=== PATIENT | female | born 1990 | race Two or more races ===

== ENCOUNTER 2025-01-07 09:56 | Emergency (ER) | payer OTHER, SELFPAY ==
[2025-01-07 10:12] VITALS: BP 136/84; PULSE 70; RESP 18; TEMP 36.9; O2SAT 99; BMI 44.2
--- NOTE | 2025-01-07 10:18 | PD.EDDENTL ---
ED Dental RME/HPI General Chief complaint: Ear Stated complaint: RIGHT EARACHE X AM RADIATING DOWN NECK Time Seen by Provider: 01/07/25 10:02 Arrival date/time: 01/07/25 09:56 34-year-old female with history of dental caries and fractured tooth presents to the emergency department today complains of right-sided dental pain, right-sided jaw pain and right ear pain Limitations: no limitations Related Data Previous Rx's ?Medication ?Instructions ?Recorded ibuprofen 800 mg tablet (IBU) 800 mg PO Q8H #20 tabs 03/06/24 clindamycin HCl 300 mg capsule 300 mg PO TID 7 days #21 caps 01/07/25 hydrocodone 5 mg-acetaminophen 325 1 tab PO BID PRN pain #6 tabs 01/07/25 mg tablet ibuprofen 800 mg tablet 800 mg PO TID PRN pain #30 tabs 01/07/25 Allergies Allergy/AdvReac Type Severity Reaction Status Date / Time diphenhydramine (From Allergy Verified 01/07/25 10:00 Benadryl) Review of Systems Review of Systems Systems Reviewed: All systems reviewed, normal except as documented Constitutional Constitutional: Reports system reviewed and no additional complaints, except as documented, Denies fever(s) and Denies headache(s) Eyes Eyes: Reports system reviewed and no additional complaints, except as documented and Denies blurry vision ENT Ears, Nose, Mouth, and Throat: Reports system reviewed and no additional complaints, except as documented, Reports dental pain, Denies headache(s), Denies nasal congestion and Denies nasal discharge Cardiovascular Cardiovascular: Reports system reviewed and no additional complaints, except as documented, Denies chest pain and Denies dyspnea Respiratory Respiratory: Reports system reviewed and no additional complaints, except as documented, Denies chest congestion, Denies cough and Denies dyspnea Gastrointestinal Gastrointestinal: Reports system reviewed and no additional complaints, except as documented and Denies abdominal pain Integumentary/Breasts Skin/Breast: Reports system reviewed and no additional complaints, except as documented and Denies rash Neurologic Neurologic: Reports system reviewed and no additional complaints, except as documented, Reports as per HPI and Denies headache(s) Past Medical History Social History SMOKING STATUS: Never smoker ED Exam General Limitations: Present no limitations General appearance: Present alert and in no apparent distress Head Head exam: Present atraumatic, normocephalic and normal inspection Eye Eye exam: Present normal appearance, PERRL and EOMI; Absent conjunctival injection ENT ENT exam: Present mucous membranes moist Expanded ENT Exam Mouth exam: Absent drooling or trismus Teeth exam: Present dental caries, fractured tooth #, dental tenderness # and gingival swelling Neck Neck exam: Present normal inspection, full ROM and trachea midline Chest Chest inspection: Present normal inspection and symmetric chest wall rise Respiratory Respiratory exam: Present normal lung sounds bilaterally Cardiovascular Cardiovascular exam: Present regular rate, normal rhythm and normal heart sounds Abdominal Exam Abdominal exam: Present soft and normal bowel sounds Extremities Exam Extremities exam: Present normal inspection and full ROM Back Exam Back exam: Present normal inspection and full ROM Neurological Exam Neurological exam: Present alert, oriented X3 and CN II-XII intact Psychiatric Psychiatric exam: Present normal affect and normal mood Skin Skin exam: Present warm, dry, intact and normal color Course Quality Measures none Vital Signs Vital signs: Vital Signs Temperature 98.5 F 01/07/25 10:12 Pulse Rate 70 01/07/25 10:12 Respiratory Rate 18 01/07/25 10:12 Blood Pressure 136/84 H 01/07/25 10:12 Pulse Oximetry (%) 99 01/07/25 10:12 Oxygen Delivery Method Room Air 01/07/25 10:12 O2 saturation 99% r/a wnl Dental / Oral MDM Narrative MDM Narrative:: 34-year-old female with history of dental caries and fractured tooth presents to the emergency department today complains of right-sided dental pain, right-sided jaw pain and right ear pain On exam patient has fractured tooth right molar as well as mild right-sided facial swelling Patient will be treated course of antibiotics and pain medication patient started to follow-up with dentist soon as possible for emergent concerns directed return immediately Patient data External records reviewed:: [facility] previous records Clinical information provided by:: patient Social determinants that could affect healthcare access:: none Patient has the following chronic illnesses:: None How is presenting disease/condition affected by chronic disease/condition?: no chronic disease Evaluation data The following diagnostics were reviewed and interpreted by me:: other (specify) (N/A) Lab and/or radiology exams considered but not ordered:: Consider not ordered Interpretation Summary: N/A Medications / Prescriptions Medications or Prescriptions considered but not ordered:: Given Medication administrations:: Given Consultations Consultation(s) initiated? (list below): No Diagnosis Dental Differential Diagnosis: gingival abscess, dental caries, toothache, dental abscess and fracture of tooth Most likely diagnosis given after review of the tests above:: Dental pain Admission Indicated Admission indicated?: not indicated Admission Request Was there a request for admission?: No Disposition Plan Disposition Plan: Discharge Discharge Attestation Discharge Attestation: The patient and all family members were given an opportunity to ask questions and understood the discharge instructions. Discharge instructions specifically effects, indications for sooner follow up or return to the emergency department, and the expected course of current diagnosis. Patient condition: Stable Discharge Plan Plan Patient Disposition: HOME (Self Care) Disposition Comment: stable Prescriptions/Referrals Prescriptions/Med Rec: New clindamycin HCl 300 mg capsule 300 mg PO TID 7 Days Qty: 21 0RF ibuprofen 800 mg tablet 800 mg PO TID PRN (Reason: pain) Qty: 30 0RF hydrocodone-acetaminophen 5-325 mg tablet 1 tab PO BID MDD 10 PRN (Reason: pain) Qty: 6 0RF No Action ibuprofen [IBU] 800 mg tablet 800 mg PO Q8H Qty: 20 0RF Referrals: Mahi Maxwell, SOFTWARE ENGINEER ADVISOR [Primary Care Provider] - In 1 week Problem List Clinical Impression: Fracture of tooth, Abscess, dental Patient/Caregiver Discharge Instructions Education Materials: Dental Abscess Additional Instructions: Please follow up with your primary care doctor in the next 24-48hrs for any worsening symptoms return here immediately Print Language: Mongolian Stand Alone Forms: Comfort Award Info., Patient Portal Info Letter PA/GOVERNMENT AFFAIRS RESEARCHER Supervising Physician PA/GOVERNMENT AFFAIRS RESEARCHER Supervising Physician: dr aldana
== END 2025-01-07 12:19 | disposition home or self-care (01) ==
PROVIDERS: Emergency Provider Family Medicine; PCP Registered Nurse
DX: S02.5XXA Fracture of tooth (traumatic), initial encounter for closed fracture (principal); K04.7 Periapical abscess without sinus; X58.XXXA Exposure to other specified factors, initial encounter
CPT/HCPCS: 99281

== ENCOUNTER 2025-07-11 00:52 | Emergency (ER) | payer SELFPAY ==
[2025-07-11 00:55] VITALS: BMI 48.0
[2025-07-11 01:06] VITALS: BP 132/84; PULSE 80; RESP 18; TEMP 36.8; O2SAT 98
--- NOTE | 2025-07-11 01:12 | XR_ITS ---
Examination: CT abdomen and pelvis without contrast. Coronal 3-D reconstructions. Sagittal 2-D reconstructions. Date and time of exam:July 11, 2025, 0220 hrs. Indications: Right-sided flank pain beginning 2 days ago CTDI: vol (mGy): 14.11 DLP: (mGycm): 890 Technique: Axial images of the abdomen have been obtained, 3 mm slice thickness Intravenous contrast material has not been administered. Low dose protocols were performed. One or more of the following dose reduction techniques were used; automated exposure control, adjustment of the mA and/or KV according to patient size, use of iterative reconstruction technique. Findings: No focal liver or splenic lesions Contracted gallbladder No pancreatic or adrenal mass Moderate renal scar formation, but no renal or ureteral calculi, no hydronephrosis Aorta normal size Normal appendix No bowel obstruction No pelvic mass No bladder mass or bladder calculi The osseous structures are intact Impression: No renal or ureteral calculi, no hydronephrosis Normal appendix
--- NOTE | 2025-07-11 01:18 | PD.EDABDPN ---
ED Abdominal Pain RME/HPI General Chief Complaint: Abdominal Pain Stated complaint: RIGHT FLANK PAIN Time seen by provider: 07/11/25 01:02 Arrival date/time: 07/11/25 00:52 Source: patient RME / HPI RME / HPI narrative: Ms. Browning is a 35-year-old female with past medical history of asthma and morbid obesity who presented to [facility] emergency department with a chief complaint of abdominal pain. Patient complains of right-sided abdominal pain which started about 2 weeks ago reports started as a dull ache radiating to her right flank, she also complains of diarrhea since the last 2 weeks reports multiple episodes of stools. She denies any nausea vomiting chest pain shortness of breath and palpitations. Related Data Previous Rx's ?Medication ?Instructions ?Recorded ibuprofen 800 mg tablet (IBU) 800 mg PO Q8H #20 tabs 03/06/24 hydrocodone 5 mg-acetaminophen 325 1 tab PO BID PRN pain #6 tabs 01/07/25 mg tablet ibuprofen 800 mg tablet 800 mg PO TID PRN pain #30 tabs 01/07/25 Allergies Allergy/AdvReac Type Severity Reaction Status Date / Time diphenhydramine (From Allergy Verified 07/11/25 00:53 Benadryl) Review of Systems Review of Systems Systems Reviewed: All systems reviewed, normal except as documented Past Medical History Past Medical History RESPIRATORY: Positive Asthma Social History SMOKING STATUS: Never smoker ED Exam Narrative Physical exam: Physical Exam General: Awake and in no acute distress. Conversational and non-toxic appearing. HEENT: Normocephalic, atraumatic, mucous membranes moist. Heart: Regular rate and rhythm, no murmurs. Lungs: Clear to auscultation with no wheezing or crackles. Abdomen: Soft, obese, nondistended, tenderness right abdomen, positive bowel sounds. ?No guarding or rebound tenderness. Neurologic: Alert and oriented x3, no gross neurological deficit, and patient able to move all 4 extremities. Extremities: 1+ BLE Edema Skin: No rash or ecchymoses. Course Quality Measures none Orders Category Date Time Status EKG (ED ONLY) *Do not use* NOW Care 07/11/25 01:[address] abdomen pelvis wo con Stat Exams 07/11/25 01:12 Taken EKG (ED Only) Stat Exams 07/11/25 01:10 Ordered Amylase Stat Lab 07/11/25 01:25 Completed Bilirubin,Direct Stat Lab 07/11/25 01:25 Completed CBC Stat Lab 07/11/25 01:25 Completed CMP [Comprehensive Metabolic Panel] Stat Lab 07/11/25 01:25 Completed Free T4 (Free Thyroxine) Stat Lab 07/11/25 01:25 Completed HCG,Qualitative Serum Stat Lab 07/11/25 01:25 Completed INR [Prothrombin Time with INR] Stat Lab 07/11/25 01:25 Completed Lactate (Lactic Acid) Stat Lab 07/11/25 01:25 Completed Magnesium Stat Lab 07/11/25 01:25 Completed PTT [Partial Thromboplastin Time] Stat Lab 07/11/25 01:25 Completed Procalcitonin Stat Lab 07/11/25 01:25 Completed Thyroid Stimulating Hormone Stat Lab 07/11/25 01:25 Completed Troponin I Stat Lab 07/11/25 01:25 Completed Urinalysis, C/S if Indicated Stat Lab 07/11/25 03:40 Completed Acetaminophen Tab [Tylenol ES Tab] Med 07/11/25 01:15 Discontinued 500 mg PO X1 ONE Vital Signs Vital signs: Vital Signs Temperature 98.3 F 07/11/25 01:06 Pulse Rate 80 07/11/25 01:06 Respiratory Rate 18 07/11/25 01:06 Blood Pressure 132/84 H 07/11/25 01:06 Pulse Oximetry (%) 98 07/11/25 01:06 Oxygen Delivery Method Room Air 07/11/25 01:06 Abdominal Pain MDM MDM Narrative MDM Narrative:: #Abdominal pain #Diarrhea 35-year-old female with past medical history of asthma seen in ER today for abdominal pain. Complains of dull ache on the right side with radiation to the right flank. Complains of diarrhea for 2 weeks as well Workup: CBC: WBC 9.5 hemoglobin 13.2 platelet 348 Coags INR 1.0 PT APTT normal Chemistry: Sodium 142 potassium 3.6 chloride 108 bicarb 27.5 anion gap 7 BUN 8 creatinine 0.7 GFR greater than 60, lactate 1.2 osmolality 282 corrected calcium 9.4 magnesium 1.8 T. bili 0.3 direct bilirubin less than 0.1 AST 24 ALT 22 alk phos 136 troponin negative total protein 6.8 albumin 4.3 globulin 2.5 amylase 35 Pro-Kev less than 0.04 TSH 3.27 free T41.16 hCG negative Urine analysis: pH 5.5 specific gravity 1.036, trace protein trace ketones negative blood nitrite bilirubin positive leukocyte esterase 5 RBC 4 WBC 4+ calcium oxalate crystals rare bacteria CT abdomen pelvis: No evidence of acute intra-abdominal or pelvic pathology EKG Sinus Rhythm Findings discussed with patient, patient to be discharged follow-up with primary care physician. Recommend GI referral and further workup as indicated Case discussed with Attending Physician Dr. Loulou Delgado MD Internal Medicine PGY-2 Disclaimer: This note was dictated by speech recognition. Minor errors in soil conservation teacher may be present due to voice recognition software. Patient data External records reviewed:: [facility] previous records Clinical information provided by:: patient Social determinants that could affect healthcare access:: none Patient has the following chronic illnesses:: Asthma How is presenting disease/condition affected by chronic disease/condition?: uneffected by Evaluation data The following diagnostics were reviewed and interpreted by me:: lab results, radiology exam(s) and EKG tracing(s) Lab and/or radiology exams considered but not ordered:: None Interpretation Summary: CBC: WBC 9.5 hemoglobin 13.2 platelet 348 Coags INR 1.0 PT APTT normal Chemistry: Sodium 142 potassium 3.6 chloride 108 bicarb 27.5 anion gap 7 BUN 8 creatinine 0.7 GFR greater than 60, lactate 1.2 osmolality 282 corrected calcium 9.4 magnesium 1.8 T. bili 0.3 direct bilirubin less than 0.1 AST 24 ALT 22 alk phos 136 troponin negative total protein 6.8 albumin 4.3 globulin 2.5 amylase 35 Pro-Kev less than 0.04 TSH 3.27 free T41.16 hCG negative Urine analysis: pH 5.5 specific gravity 1.036, trace protein trace ketones negative blood nitrite bilirubin positive leukocyte esterase 5 RBC 4 WBC 4+ calcium oxalate crystals rare bacteria CT abdomen pelvis: No evidence of acute intra-abdominal or pelvic pathology EKG Sinus Rhythm Medications / Prescriptions Medications or Prescriptions considered but not ordered:: None Medication administrations:: Medication Administration History Discontinued Medications Acetaminophen (Acetaminophen 500 Mg Tablet) 500 mg PO X1 ONE Stop: 07/11/25 01:16 Last Admin: 07/11/25 01:26 Dose: 500 mg Documented By: CVL As Above Consultations Consultation(s) initiated? (list below): No Diagnosis Differential diagnosis abdominal pain: abdominal pain, calculus of kidney and small bowel obstruction Most likely diagnosis given after review of the tests above:: Abdominal Pain Admission Indicated Admission indicated?: not indicated Admission Request Was there a request for admission?: No Disposition Plan Disposition Plan: Discharge Discharge Attestation Discharge Attestation: The patient and all family members were given an opportunity to ask questions and understood the discharge instructions. Discharge instructions specifically effects, indications for sooner follow up or return to the emergency department, and the expected course of current diagnosis. Patient condition: Stable Discharge Plan Plan Patient Disposition: HOME (Self Care) Patient condition on transfer: Stable Prescriptions/Referrals Prescriptions/Med Rec: No Action ibuprofen [IBU] 800 mg tablet 800 mg PO Q8H Qty: 20 0RF ibuprofen 800 mg tablet 800 mg PO TID PRN (Reason: pain) Qty: 30 0RF hydrocodone-acetaminophen 5-325 mg tablet 1 tab PO BID MDD 10 PRN (Reason: pain) Qty: 6 0RF Referrals: Mahi Maxwell PHOTOFINISHING LABORATORY WORKER [Primary Care Provider] - In 1 week Problem List Clinical Impression: Abdominal pain Patient/Caregiver Discharge Instructions Education Materials: Anatomy of the Digestive System, How the Colon Works Additional Instructions: -You were seen in the ER today for abdominal pain, we did a CT scan of her abdomen the scan showed no evidence of acute intra-abdominal or pelvic pathology, your blood work shows no signs of infection her hemoglobin is stable you do not have anemia, we checked your thyroid as well which was normal. -Use cuen-inn-nlrgics Tylenol Extra strength and ibuprofen for pain control -Follow-up with your primary care physician for further diarrhea workup we recommend a referral to gastroenterology if you continue to have diarrhea -Maintain adequate hydration drink at least 2 to 3 L of water every day -Follow-up with your primary care physician within 1 week Ask to review all test results and official radiology reports, to make sure you receive all necessary follow-ups and monitoring. To make sure there is no serious intra-abdominal condition, ask for help with more investigation not available here in the ER. Such as EGD or scoping the stomach, colonoscopy or scoping the colon, and referral to see building and construction manager. -Return to the emergency department if your symptoms worsen Print Language: Armenian Stand Alone Forms: Comfort Award Info., Patient Portal Info Letter
[2025-07-11] MEDS: ACETAMINOPHEN 500 MG TABLET PO (01:26)
[2025-07-11 01:38] LABS: Lactate (Lactic Acid) 1.2 mMol/L (0.4-2.0)
[2025-07-11 01:49] LABS: Basophils # (Auto) 0.0 Thou/mm3 (0.0-0.2); Basophils % (Auto) 0 % (0-2.5); Eosinophils # (Auto) 0.4 Thou/mm3 (0.0-0.5); Eosinophils % (Auto) 4 % (0-10); Hematocrit 40.8 % (36.0-46.0); Hemoglobin 13.2 g/dL (12.0-16.0); Immature Granulocytes Auto 0.02 Thou/mm3 (0.00-0.00); Lymphocytes # (Auto) 3.5 Thou/mm3 (1.0-4.8); Lymphocytes % (Auto) 37 % (10-50); Mean Corpuscular HGB Conc 32.4 g/dl (31.0-37.0); Mean Corpuscular Hemoglobin 28.5 pg (25.0-35.0); Mean Corpuscular Volume 88 fL (80-100); Monocytes # (Auto) 0.7 Thou/mm3 (0.0-0.8); Monocytes % (Auto) 7 % (0-12); Neutrophils # (Auto) 4.9 Thou/mm3 (1.8-7.7); Neutrophils % (Auto) 52 % (37-80); Nucleated Red Blood Cell # 0.00 Thou/mm3 (0.00-0.00); Nucleated Red Blood Cell % 0 /100 WBC (0); Platelet Count 348 Thou/mm3 (140-440); RDW Standard Deviation 41.9 fL (36.4-46.3); Red Blood Count 4.63 Miln/mm3 (4.00-5.20); White Blood Count 9.5 Thou/mm3 (3.6-11.0)
[2025-07-11 01:56] LABS: INR 1.0 (0.9-1.3); Partial Thromboplastin Time 26.3 Seconds (22.0-36.0); Prothrombin Time 10.3 Seconds (9.0-12.2)
[2025-07-11 02:05] LABS: HCG,Qualitative Serum Negative
[2025-07-11 02:34] LABS: Alanine Aminotransferase 22 U/L (10-49); Albumin, Serum 4.3 gm/dL (3.5-5.0); Albumin/Globulin Ratio 1.7 (1.2-2.2); Alkaline Phosphatase 136 U/L (46-116); Amylase 35 U/L (30-118); Anion Gap 7 (7-16); Aspartate Amino Transferase 24 U/L (0-34); BUN/Creatinine Ratio 11 Ratio (12-20); Bilirubin,Direct < 0.1 mg/dL (0.0-0.3); Bilirubin,Total 0.3 mg/dL (0.3-1.2); Blood Urea Nitrogen 8 mg/dL (9-23); Calcium 9.4 mg/dL (8.3-10.6); Calcium (Corrected) 9.4 mg/dL (8.5-10.1); Carbon Dioxide 27.5 mMol/L (20.0-31.0); Chloride 108 mMol/L (98-107); Creatinine (Component) 0.7 mg/dL (0.6-1.3); Estimated Creatinine Clearance 148.1 mL/min (>60); Free T4 (Free Thyroxine) 1.16 ng/dL (0.89-1.76); Globulin 2.5 gm/dL (2.3-3.5); Glucose 113 mg/dL (74-106); Magnesium 1.8 mg/dL (1.6-2.6); Osmolality,Calculated 282 (275-295); Potassium 3.6 mMol/L (3.4-5.1); Procalcitonin < 0.04 ng/ml (0.0-0.49); Sodium 142 mMol/L (136-145); Thyroid Stimulating Hormone 3.27 uIU/mL (0.55-4.78); Total Protein 6.8 gm/dL (5.7-8.2); Troponin I < 0.002 ng/mL (0.0-0.045); eGFR > 60 See Note
[2025-07-11 03:51] LABS: Collection Type, Urine Clean Catch
[2025-07-11 03:57] LABS: Bacteria,Urine Rare; Bilirubin,Urine Negative (Negative); Blood,Urine Negative (Negative); Calcium Oxalate Crystals,Urine 4+; Clarity,Urine Clear (Clear/Hazy); Color,Urine Yellow (Lt Yel-Yel); Culture Indicated,Urine Not Indicated; Glucose, Urine Negative (Negative); Hyaline Casts,Urine < 1 /hpf (0-1); Ketones,Urine Trace (Negative); Leukocyte Esterase,Urine Positive (Negative); Nitrite,Urine Negative (Negative); PH,Urine 5.5 (5.0-7.0); Protein,Urine Trace (Neg - Trace); RBC,Urine 5 /hpf (0-3); Specific Gravity,Urine 1.036 (1.001-1.035); Squamous Epithelial Cell,Urine 5 /hpf (0-5); Urobilinogen,Urine 2.0 mg/dL (0.0-1.0); WBC,Urine 4 /hpf (0-5)
--- NOTE | 2025-07-11 04:07 | PRELIM_ITS ---
CT scan of the abdomen and pelvis without intravenous contrast (axial sections with sagittal and coronal reformats) July 11, 2025 at 0222 hours Clinical History: Abdominal pain. Comparison: No prior study is available for comparison. Findings: The lung bases are clear. The liver, gallbladder, pancreas, spleen, kidneys and adrenals are unremarkable on this noncontrast study. No evidence of bowel obstruction. The appendix is within normal limits. There is no mesenteric or retroperitoneal adenopathy. The urinary bladder is nondistended, limited evaluation. There is no free fluid or free air. The osseous structures are unremarkable. The uterus and ovaries are within normal limits. Impression: No evidence of acute intra-abdominal or pelvic pathology. Report Electronically Signed By: Eleazar Sexton 07/11/2025 4:06:56 AM [EST]
[2025-07-11 04:25] VITALS: RESP 16
== END 2025-07-11 04:25 | disposition home or self-care (01) ==
PROVIDERS: Emergency Provider Emergency Medicine; PCP Registered Nurse
DX: R10.9 Unspecified abdominal pain (principal); R19.7 Diarrhea, unspecified; J45.909 Unspecified asthma, uncomplicated
CPT/HCPCS: 36415; 74176; 80053; 81001; 82150; 82248; 83605; 83735; 84145; 84439; 84443; 84484; 84703; 85025; 85610; 85730; 93005; 99284; A9270